=== PATIENT | male | born 1970 | race Hispanic/Latino ===

== ENCOUNTER 2025-07-04 21:27 | Inpatient (IN) | payer OTHER, SELFPAY ==
[2025-07-04 19:10] VITALS: BP 175/111
[2025-07-04 19:47] LABS: Urine Character Slightly Cloudy (Clear)
[2025-07-04 19:48] LABS: Hematocrit 38.9 % (39.0-52.0); Hemoglobin 13.4 g/dL (13.0-18.0); Mean Corp Hgb Conc. 34.4 g/dL (33.0-37.0); Mean Corpuscular Volume 96.3 fL (80.0-94.0); Nucleated Red Blood Cells % 0 % (-); Platelet Count 202 10^3/uL (130-400); Red Cell Dist. Width 12.1 % (11.5-14.5)
[2025-07-04 19:57] VITALS: BP 166/95
[2025-07-04 20:01] VITALS: BMI 24.9
[2025-07-04 20:04] LABS: Urine Urothelial Cell 0-2 /LPF (FEW)
[2025-07-04 20:10] LABS: ALT (SGPT) 58 U/L (0-50); AST (SGOT) 88 U/L (17-59); Albumin 5.6 g/dl (3.5-5.0); Alkaline Phosphatase 115 U/L (38-126); Blood Urea Nitrogen 13 mg/dl (9-20); Calcium 9.9 mg/dl (8.4-10.2); Carbon Dioxide 25 mmol/L (22-30); Chloride 93 mmol/L (98-107); Estimated Creatinine Clearance 107 ml/min; Glucose 160 mg/dl (70-99); Lipase 211 U/L (23-300); Potassium 4.4 mmol/L (3.5-5.1); Sodium 138 mmol/L (135-145); Total Protein 9.5 g/dl (6.3-8.2); eGFR > 60.00
--- NOTE | 2025-07-04 20:13 | ED.GENMED ---
History of Present Illness
<Winnie Andrew PA-C - Last Filed: 07/04/25 23:54>
General
Chief Complaint: Vomiting Blood
Source: patient
Exam Limitations: none
Time Seen by Provider: 07/04/25 19:49
History of Present Illness
History of Present Illness:
54yoM with a history of daily alcohol use presenting with his friend for evaluation of vomiting. History is obtained with the assistance of a [employer] video lab aid. Symptoms began this afternoon. He reports 4 episodes of bloody emesis.
Emesis is described as coffee grounds with 2 episodes of bright red blood. He also reports subjective fevers and feeling cold although did not check his temperature. He has some mild abdominal discomfort which he attributes to vomiting. No chest
pain, shortness of breath, dizziness, syncope. He drinks 2-3 alcoholic beverages daily. Last drink was about 24 hours ago. He denies any history of alcohol withdrawal and has never been diagnosed with liver disease in the past. He takes Advil
OTC but denies taking this daily. He has not seen a doctor in many years.
Phy Exam
<Winnie Andrew PA-C - Last Filed: 07/04/25 23:54>
Physical Exam
Physical Exam:
Patient tremulous
General Physical Exam
General Presentation: mild distress
General Skin: warm and dry
General Habitus: normal
General Mental: alert
Cardiovascular Exam
Cardiovascular Exam: tachycardia
Pulmonary Exam
Pulmonary Exam: lungs clear, no respiratory distress, no rales, no crackles, no rhonchi and no wheezing
Gastrointestinal Exam
Gastrointestinal Exam: non tender, soft and non distended
Neurological Exam
Neurological Exam: alert and other
Jolynn Coma Scale
Eye Opening: Spontaneous
Verbal Response: Oriented
Motor Response: Obeys Commands
GCS Total Score: 15
Skin Exam
Skin Exam: warm/dry
Psychiatric Exam
Psychiatric Exam: anxious
Course
<Winnie Andrew PA-C - Last Filed: 07/04/25 23:54>
Orders/Labs/Results
Orders:
Orders
07/04/25 Breakfast
NPO
Allow oral meds: Yes
Allow clear liquids: Sips of Clears
NPO with Ice Chips: Yes
07/04/25 19:29
Complete Blood Count/With Diff Urgent
Comprehensive Metabolic Panel Urgent
Lipase Urgent
Urinalysis Reflex To Culture Urgent
Date Specimen was Collected: 07/04/25
Time Specimen was Collected: 19:17
Urine Microscopic Reflex Cult Urgent
Urine Culture Urgent
BARBI Source: U
Specimen Description:
Date Specimen was Collected: 07/04/25
Time Specimen was Collected: 19:17
07/04/25 20:11
Electrocardiogram (*1) Urgent
Reason for Study: Abdominal Pain
EKG- Treatment ONCE
IV Insert/Care/Rem.- Treatment PRN
CefTRIAXone [Rocephin] 1,000 mg IV NOW STA
Lorazepam [Ativan] 2 mg IV NOW STA
Octreotide [Sandostatin] 50 mcg IV NOW STA
Pantoprazole [Protonix IV] 80 mg IV NOW STA
07/04/25 20:15
Type+Screen Urgent
Prothrombin Time Urgent
07/04/25 20:30
Octreotide Acetate [Sandostatin] 500 mcg 0.9% Sodium Chloride 250 ml [Nss] 249 ml IV Q10H
07/04/25 20:49
Admit/Transfer Patient As Directed
Co-Sign Provider:
Level of Care: Inpatient admission
Assign to:: IMU- Intermediate Care
Physician / Group: Gelacio
Diagnosis: GI Bleed, ETOH withdrawal
Reason for Hospitalization: PPI drip, serial H&H, alcohol withdrawal protocol
Expected length of stay greater than two midnights?: Yes
ELOS- Estimated Length of Stay in days: 3
I certify the patient meets the requirements for IP care: Yes
PRN Pain Medication Management As Directed
May give lesser potent ordered pain med per pt: Yes
preference::
Protocol:: Medication orders for pain may be administered in a
manner that supports deferring to patient preference
when the pt is:
- Requesting an ordered lesser potent pain medication.
Least to most potent pain medications are defined
as: acetaminophen < NSAID < tramadol < opioids
(morphine, oxycodone, hydromorphone).
- Requesting a lesser dose of the same medication IF
ORDERED.
- Requesting a less intrusive route of administration
if both routes are prescribed by the provider (PO <
IV).
07/04/25 20:50
Code Status As Directed
Resuscitation Status: Full Code
07/04/25 20:57
US Abdomen Complete/Upper Urgent
Comment:
Reason For Exam: abdominal pain, elevated bilirubin
07/04/25 22:25
0.9% Sodium Chloride 1000 ml [Nss] 1,000 ml IV 100 mls/hr
0.9% Sodium Chloride [Nss (Preservative Free)] See Protocol IV PRN PRN
Acetaminophen [Tylenol] 650 mg PO Q4HPRN PRN
FOLic ACID [Folvite] 1 mg 0.9% Sodium Chloride 50 ml [Nss] 50 ml IV DAILYPRN
Lorazepam [Ativan] 1 mg IV Q1HPRN PRN
Lorazepam [Ativan] 1 mg PO Q2HPRN PRN
Lorazepam [Ativan] 2 mg IV Q1HPRN PRN
Ondansetron Injectable [Zofran] 4 mg IV Q6HPRN PRN
Pantoprazole 80 mg/100 ml Nss [Protonix] 80 mg in 100 ml IV Q10H
Phenobarbital Sodium [Phenobarbital] 97.5 mg IV TID
07/04/25 22:25
GASTROINTESTINAL CONSULT Routine
Consulting Provider: Nati Johnson
Was physician already notified: Yes
Activity As Directed
Activity Level: Out of Bed-Early Mobility
With Assistance
I&O [Intake/ Output] As Directed
Frequency: q12h
MSAS SCORE As Directed
MSAS Score 0-4: Repeat MSAS every 2 hours until 0-4 for three consecutive assessments, then every 4 hours x 48
hours.
MSAS Score 5-7: For MILD withdrawl symptoms. Repeat MSAS and RASS every 2 hours
MSAS Score 8-11: For MODERATE withdrawal symptoms. Repeat MSAS and RASS every 1 hour. Consider ICU or IMU
level of care.
MSAS Score > 11: For SEVERE withdrawal symptoms. Repeat MSAS and RASS every 1 hour. Notify provider, consider
ICU level of care.
MSAS Additional Instructions: If no improvement or no decrease in score from severe to moderate within 12
hours, consult psychiatry
MSAS Notify Provider: Notify provider if patient requires more than 10 mg of Lorazepam in eight hour period.
Pneumatic Compression Sleeves As Directed
Type: Knee high
Vital Signs As Directed
Frequency: Per unit guidelines
DX Deep Vein Thrombosis Video Routine
07/05/25 00:30
H&H Q6H
07/05/25 06:00
Complete Blood Count/No Diff IN AM
Comprehensive Metabolic Panel IN AM
GGTP IN AM
Magnesium IN AM
Phosphorus IN AM
07/05/25 06:30
H&H Q6H
07/05/25 08:00
FOLic ACID [Folvite] 1 mg PO DAILY
Thiamine Injection 200 mg IV Q12
07/05/25 12:30
H&H Q6H
07/05/25 18:30
H&H Q6H
07/05/25 20:00
CefTRIAXone [Rocephin] 1,000 mg IV Q24H
07/06/25 22:00
Phenobarbital [Luminal] 64.8 mg PO TID
07/08/25 08:00
Thiamine HCl [Vitamin B1] 100 mg PO BID
07/08/25 22:00
Phenobarbital [Luminal] 32.4 mg PO TID
Abnormal Lab Results
07/04/25
19:29
WBC 11.0 H 10^3/uL
(4.8-10.8)
RBC 4.04 L 10^6/uL
(4.70-6.10)
Hct 38.9 L %
(39.0-52.0)
MCV 96.3 H fL
(80.0-94.0)
MCH 33.2 H pg
(27.0-31.0)
Absolute Neuts (auto) 10.0 H 10^3/uL
(1.4-6.5)
Absolute Lymphs (auto) 0.3 L 10^3/uL
(1.2-3.4)
Neutrophils % 91.0 H %
(42.2-75.2)
Lymphocytes % 3.1 L %
(20.5-51.1)
Chloride 93 L mmol/L
(98-107)
Glucose 160 H mg/dl
(70-99)
Total Bilirubin 2.0 H mg/dl
(0.2-1.3)
AST 88 H U/L
(17-59)
ALT 58 H U/L
(0-50)
Total Protein 9.5 H g/dl
(6.3-8.2)
Albumin 5.6 H g/dl
(3.5-5.0)
Urine Ketones 3+ A
(Negative)
Ur Occult Blood Reflex 3+ A
(Negative)
Urine Nitrite (Reflex) Positive A
(Negative)
Urine Urobilinogen 2+ A
(Neg - 1+)
Leukocyte Esterase Rfl 1+ A
(Negative)
Urine RBC 7-10 A /HPF
(0-2)
Urine Bacteria (Reflex) Moderate A
(Negative)
Urine Albumin (Reflex) 3+ A
(Neg - Trace)
07/04/25 19:51
07/04/25 19:29
Vital Signs
Initial and Last Documented VS:
Initial Vital Signs
Temp Pulse Resp BP Pulse Ox
98.5 F 127 24 175/111 98
07/04/25 19:10 07/04/25 19:10 07/04/25 19:10 07/04/25 19:10 07/04/25 19:10
Last Documented Vital Signs
Temp Pulse Resp BP Pulse Ox
98.6 F 96 17 148/98 99
07/04/25 22:36 07/04/25 23:12 07/04/25 23:12 07/04/25 23:12 07/04/25 23:15
Adriannalt;Isac Mckeon, DO - Last Filed: 07/04/25 20:29>
Orders/Labs/Results
Orders:
Orders
07/04/25 Breakfast
NPO
Allow oral meds: Yes
Allow clear liquids: Sips of Clears
NPO with Ice Chips: Yes
07/04/25 19:29
Complete Blood Count/With Diff Urgent
Comprehensive Metabolic Panel Urgent
Lipase Urgent
Urinalysis Reflex To Culture Urgent
Date Specimen was Collected: 07/04/25
Time Specimen was Collected: 19:17
Urine Microscopic Reflex Cult Urgent
Urine Culture Urgent
BARBI Source: U
Specimen Description:
Date Specimen was Collected: 07/04/25
Time Specimen was Collected: 19:17
07/04/25 20:11
Electrocardiogram (*1) Urgent
Reason for Study: Abdominal Pain
EKG- Treatment ONCE
IV Insert/Care/Rem.- Treatment PRN
CefTRIAXone [Rocephin] 1,000 mg IV NOW STA
Lorazepam [Ativan] 2 mg IV NOW STA
Octreotide [Sandostatin] 50 mcg IV NOW STA
Pantoprazole [Protonix IV] 80 mg IV NOW STA
07/04/25 20:15
Type+Screen Urgent
Prothrombin Time Urgent
07/04/25 20:30
Octreotide Acetate [Sandostatin] 500 mcg 0.9% Sodium Chloride 250 ml [Nss] 249 ml IV Q10H
07/04/25 20:49
Admit/Transfer Patient As Directed
Co-Sign Provider:
Level of Care: Inpatient admission
Assign to:: IMU- Intermediate Care
Physician / Group: Gelacio
Diagnosis: GI Bleed, ETOH withdrawal
Reason for Hospitalization: PPI drip, serial H&H, alcohol withdrawal protocol
Expected length of stay greater than two midnights?: Yes
ELOS- Estimated Length of Stay in days: 3
I certify the patient meets the requirements for IP care: Yes
PRN Pain Medication Management As Directed
May give lesser potent ordered pain med per pt: Yes
preference::
Protocol:: Medication orders for pain may be administered in a
manner that supports deferring to patient preference
when the pt is:
- Requesting an ordered lesser potent pain medication.
Least to most potent pain medications are defined
as: acetaminophen < NSAID < tramadol < opioids
(morphine, oxycodone, hydromorphone).
- Requesting a lesser dose of the same medication IF
ORDERED.
- Requesting a less intrusive route of administration
if both routes are prescribed by the provider (PO <
IV).
07/04/25 20:50
Code Status As Directed
Resuscitation Status: Full Code
07/04/25 20:57
US Abdomen Complete/Upper Urgent
Comment:
Reason For Exam: abdominal pain, elevated bilirubin
07/04/25 22:25
0.9% Sodium Chloride 1000 ml [Nss] 1,000 ml IV 100 mls/hr
0.9% Sodium Chloride [Nss (Preservative Free)] See Protocol IV PRN PRN
Acetaminophen [Tylenol] 650 mg PO Q4HPRN PRN
FOLic ACID [Folvite] 1 mg 0.9% Sodium Chloride 50 ml [Nss] 50 ml IV DAILYPRN
Lorazepam [Ativan] 1 mg IV Q1HPRN PRN
Lorazepam [Ativan] 1 mg PO Q2HPRN PRN
Lorazepam [Ativan] 2 mg IV Q1HPRN PRN
Ondansetron Injectable [Zofran] 4 mg IV Q6HPRN PRN
Pantoprazole 80 mg/100 ml Nss [Protonix] 80 mg in 100 ml IV Q10H
Phenobarbital Sodium [Phenobarbital] 97.5 mg IV TID
07/04/25 22:25
GASTROINTESTINAL CONSULT Routine
Consulting Provider: Nati Johnson
Was physician already notified: Yes
Activity As Directed
Activity Level: Out of Bed-Early Mobility
With Assistance
I&O [Intake/ Output] As Directed
Frequency: q12h
MSAS SCORE As Directed
MSAS Score 0-4: Repeat MSAS every 2 hours until 0-4 for three consecutive assessments, then every 4 hours x 48
hours.
MSAS Score 5-7: For MILD withdrawl symptoms. Repeat MSAS and RASS every 2 hours
MSAS Score 8-11: For MODERATE withdrawal symptoms. Repeat MSAS and RASS every 1 hour. Consider ICU or IMU
level of care.
MSAS Score > 11: For SEVERE withdrawal symptoms. Repeat MSAS and RASS every 1 hour. Notify provider, consider
ICU level of care.
MSAS Additional Instructions: If no improvement or no decrease in score from severe to moderate within 12
hours, consult psychiatry
MSAS Notify Provider: Notify provider if patient requires more than 10 mg of Lorazepam in eight hour period.
Pneumatic Compression Sleeves As Directed
Type: Knee high
Vital Signs As Directed
Frequency: Per unit guidelines
DX Deep Vein Thrombosis Video Routine
07/05/25 00:30
H&H Q6H
07/05/25 06:00
Complete Blood Count/No Diff IN AM
Comprehensive Metabolic Panel IN AM
GGTP IN AM
Magnesium IN AM
Phosphorus IN AM
07/05/25 06:30
H&H Q6H
07/05/25 08:00
FOLic ACID [Folvite] 1 mg PO DAILY
Thiamine Injection 200 mg IV Q12
07/05/25 12:30
H&H Q6H
07/05/25 18:30
H&H Q6H
07/05/25 20:00
CefTRIAXone [Rocephin] 1,000 mg IV Q24H
07/06/25 22:00
Phenobarbital [Luminal] 64.8 mg PO TID
07/08/25 08:00
Thiamine HCl [Vitamin B1] 100 mg PO BID
07/08/25 22:00
Phenobarbital [Luminal] 32.4 mg PO TID
Abnormal Lab Results
07/04/25
19:29
WBC 11.0 H 10^3/uL
(4.8-10.8)
RBC 4.04 L 10^6/uL
(4.70-6.10)
Hct 38.9 L %
(39.0-52.0)
MCV 96.3 H fL
(80.0-94.0)
MCH 33.2 H pg
(27.0-31.0)
Absolute Neuts (auto) 10.0 H 10^3/uL
(1.4-6.5)
Absolute Lymphs (auto) 0.3 L 10^3/uL
(1.2-3.4)
Neutrophils % 91.0 H %
(42.2-75.2)
Lymphocytes % 3.1 L %
(20.5-51.1)
Chloride 93 L mmol/L
(98-107)
Glucose 160 H mg/dl
(70-99)
Total Bilirubin 2.0 H mg/dl
(0.2-1.3)
AST 88 H U/L
(17-59)
ALT 58 H U/L
(0-50)
Total Protein 9.5 H g/dl
(6.3-8.2)
Albumin 5.6 H g/dl
(3.5-5.0)
Urine Ketones 3+ A
(Negative)
Ur Occult Blood Reflex 3+ A
(Negative)
Urine Nitrite (Reflex) Positive A
(Negative)
Urine Urobilinogen 2+ A
(Neg - 1+)
Leukocyte Esterase Rfl 1+ A
(Negative)
Urine RBC 7-10 A /HPF
(0-2)
Urine Bacteria (Reflex) Moderate A
(Negative)
Urine Albumin (Reflex) 3+ A
(Neg - Trace)
07/04/25 19:51
07/04/25 19:29
Vital Signs
Initial and Last Documented VS:
Initial Vital Signs
Temp Pulse Resp BP Pulse Ox
98.5 F 127 24 175/111 98
07/04/25 19:10 07/04/25 19:10 07/04/25 19:10 07/04/25 19:10 07/04/25 19:10
Last Documented Vital Signs
Temp Pulse Resp BP Pulse Ox
98.6 F 96 17 148/98 99
07/04/25 22:36 07/04/25 23:12 07/04/25 23:12 07/04/25 23:12 07/04/25 23:15
<Winnie Andrew PA-C - Last Filed: 07/04/25 23:54>
MDM/Problems Addressed
Differential Diagnosis Includes:
54yoM here after several episodes of hematemesis today. Hx of daily alcohol use. No prior dx of cirrhosis. Patient tachycardic and tremulous on exam. Last alcoholic drink was 24 hours ago. BP stable. Differential diagnosis includes: Esophageal
variceal bleed, peptic ulcer disease, gastritis, Linda-Dickinson tear
Initial ED plan: Will obtain IV access, check labs, and initiated on an octreotide gtt. 2mg IV Ativan given for concern for acute alcohol withdrawal. 80mg IV Protonix and IV Rocephin dose also ordered.
<Winnie Andrew PA-C - Last Filed: 07/04/25 23:54>
*Pulse Oximetry
SaO2: 96
Oxygen Mode of Delivery: Room air
Patient hypoxic: no
*Critical Care Note
Total Time (30-74mins, 75-104mins- exclusive of procedures): Not Applicable
<Winnie Andrew PA-C - Last Filed: 07/04/25 23:54>
Update Note
Update Note:
Hemoglobin stable at 13.4. Mild transaminitis noted on labs. INR normal. GI notified and patient admitted for further management.
ED Attending Note
<Winnie Andrew PA-C - Last Filed: 07/04/25 23:54>
-
Portions of this chart may have been created with voice recognition software.� Occasional wrong word or��sound alike� substitutions may have occurred due to the inherent limitations of voice recognition software.
<Isac Mckeon DO - Last Filed: 07/04/25 20:29>
ED Attending Note
Patient seen and examined by attending physician: Yes
I performed the substantive portion of visit, reviewed & personally made and approve the management plan that is documented in note by myself or GRACIELA.: Yes
ED Attending Note:
I agree with Padmaja's note
54-year-old male presents complaining of vomiting blood. He describes both coffee ground emesis as well as bright red blood. Patient does admit to daily alcohol use but also uses NSAIDs. No abdominal pain at this time.
General: Awake, Alert, Oriented X3. Tremulous, no real distress
Vitals: Tachycardic
Head: Atraumatic
Eyes: Pupils equal, EOMI, slightly icteric
Throat: Airway intact, no exudates
Neck: Trachea midline
Lungs: Clear and equal b/l
Heart: Regular rate, no murmurs
Abd: Soft, Nontender, No pulsatile mass
Neuro: Nonfocal
Skin: Warm, dry, no rash
Extremities: pulses equal b/l, no edema
Patient arrives with description of coffee-ground emesis and hematemesis. Patient also appears to have signs of alcohol withdrawal. Will treat with IV fluids, proton pump inhibitor, octreotide in case this is variceal bleeding. Obviously will
require hospitalization.
Discharge Plan
Departure
Patient Disposition: Admit
Date of Disposition: 07/04/25
Time of Disposition: 20:16
Presentation/result/management discussed w/ accepting MD/DO: Hospitalist
Discharge Problem:
Hematemesis
Interventions
Interventions:
*Risk Screen - Suicide Last Done: 07/04/25 19:10
*General Assessment Last Done: 07/04/25 19:10
*Neglect/Abuse Screening Last Done: 07/04/25 19:10
*ED- Fall Risk Assessment Last Done: 07/04/25 19:10
*ED COVID-19 Vaccine History Last Done: 07/04/25 19:10
*ED Influenza Vaccine History Last Done: 07/04/25 19:10
*Nursing Disposition Last Done: 07/04/25 22:35
SX-Pvzvkx-Gclmrmzpla Assessment Last Done: 07/04/25 19:58
ED- Cardiac Assessment Last Done: 07/04/25 19:59
ED- Pulmonary Assessment Last Done: 07/04/25 19:59
Discharge Date and Time
Discharge Date/Time: 07/04/25 22:35
[2025-07-04] MEDS: SANDOSTATIN 50 MCG IV (20:28)
[2025-07-04] MEDS: ATIVAN 2 MG IV (20:28)
[2025-07-04] MEDS: ROCEPHIN 1000 MG IV (20:28)
[2025-07-04] MEDS: PROTONIX IV 80 MG IV (20:29)
[2025-07-04 20:34] LABS: INR 1.05; PT 14.2 Sec (11.4-14.6)
--- NOTE | 2025-07-04 20:52 | W.PN.UPDATE ---
Update Note
Progress Note Update
Patient seen in conjunction with nurse practitioner. I agree with the findings and physical. I concur with Humberto cancino.
Briefly, this is a 54-year-old with no known signal past medical history but endorses frequent alcohol use presenting to the emergency department with 2 episodes of coffee-ground emesis and 2 episodes of hematemesis.
Patient reports acute onset of nausea and vomiting that is now resolved. He denies having any fevers or chills. He denies having any diarrhea. No known sick contacts. Patient drinks about 3 shots 4 times a week as endorsed by him, however his
friend reports drinking 1-1/2 bottles of tequila daily and he has been doing that for several months. He also smokes about 2 packs of cigarettes daily. No history of any drug use. He denies a known history of alcoholic liver disease. He has no
prior history of ascites, peripheral edema, denies prior history of GI bleed and has never had a colonoscopy or upper endoscopy. Denies any prior history of peptic ulcer disease.
In the emergency department he was afebrile, blood pressure was 160/90 with a pulse of 117 and he was satting 96% on room air.
White count was 11.0 hemoglobin 13.4 with MCV of 96 and a platelet count of 200. Electrolytes BUN/creatinine were normal. BUN was 13. Glucose was normal. He had a lipase was negative and he has a slightly elevated total bilirubin of 2.0 AST 88
and ALT 58.
Assessment and plan
GI bleed -[id number] with no known past medical history, history of alcohol use, denies NSAIDs and no known history of peptic ulcer disease or cirrhosis who presents to the emergency department with vomiting and hematemesis likely secondary to
acute gastritis from alcohol or viral etiology versus peptic ulcer and less likely variceal bleeding. Picture complicated by symptoms of early alcohol withdrawal.
� Admit to IMU
� N.p.o. for now
� PPI drip
� Starting octreotide/ceftriaxone for possible variceal bleed,
- Will obtain right upper ultrasound, if no evidence of cirrhosis we will discontinue octreotide and ceftriaxone for GI bleed prophylaxis
� Trend H&H every 6 to 8
� Type and screen
�IV fluids, antiemetics and pain control
� GI consultation
Alcohol withdrawal�history of normal daily alcohol use, MCV is 96.3 with mild transaminitis. Currenly CIWA < 6 after 1 dose of lorazepam
- etoh level
� Right upper quadrant ultrasound as above
� Will start on emphasized withdrawal protocol with the low-dose phenobarbital
DVT prophylaxis�SCDs
CODE STATUS�full code
--- NOTE | 2025-07-04 20:56 | HPS.HSE ---
Family Physician
-
Family Physician: * NONE
Chief Complaint
-
Coffee-Ground Emesis
History of Present Illness
Patient is a 54 y/o male past medical history of alcohol use disorder who presents with coffee-ground emesis. Patient reports vomiting began this morning and described as coffee colored. He reports a small amount of bright red blood, but notes its
mostly brown colored. He reports associated epigastric abdominal discomfort. He reports occasional NSAID use but not on a regular basis. He denies prior history of similar symptoms.
Initially upon arrival patient was noted to be quick tremulous raising concern for alcohol withdrawal. He was given dose of lorazepam in the emergency department with improvement in his tremors.
Medical History
Past Medical History
Past Medical History: Reports Other
Additional Past Medical History:
Alcohol Use Disorder
Past Surgical History: Reports None
Social History
Tobacco: Smoker (4-5 cigarettes per day)
Alcohol: Daily (1.5 bottles of tequila daily)
Family History
Family History: Not pertinent
Allergies / Home Medications
Allergies reflects when Allergies were last updated in [facility].
Home Medications with original date entered in [facility]
Allergy/Medication List:
Allergies
Allergy/AdvReac Type Severity Reaction Status Date / Time
No Known Allergies Allergy Unverified 07/04/25 19:10
Home Medications
ibuprofen 200 mg tablet (Advil) 200 mg PO Q6HPRN PRN MILD PAIN 07/04/25
Review of Systems
-
History Source: Patient
A 12 point ROS was completed and negative except as noted: Yes
Constitutional: Denies Fever or Chills
Respiratory: Denies Cough or Trouble Breathing
Cardiac: Denies Chest Pain or Palpitations
Abdomen/GI: Reports See HPI
Physical Exam
Vital Signs
Vital Signs
Temp Pulse Resp BP Pulse Ox
98.5 F 117 29 166/95 96
07/04/25 19:10 07/04/25 20:00 07/04/25 20:00 07/04/25 19:57 07/04/25 20:16
Physical Exam
General: Well Developed, Well Nourished and No Apparent Distress
HEENT: NormoCephalic, Anicteric, Moist mucous membranes and Atraumatic
Respiratory: Clear and Non Labored Respirations; No Wheezes, Rales or Rhonchi
Cardiac: S1/S2, Regular Rhythm and Tachycardia
GI: Soft, Non Distended and Tender (Mild in epigastric region)
Musculoskeletal: No Clubbing, No Cyanosis and No Edema
Skin: Warm and Dry; No Rash
Neuro: Awake, Alert, Oriented and Nonfocal/grossly intact
Psych: Calm
Laboratory Results
-
07/04/25 19:51
07/04/25 19:29
Laboratory Results
PT 14.2 Sec (11.4-14.6) 07/04/25 20:15
INR 1.05 07/04/25 20:15
Total Bilirubin 2.0 mg/dl (0.2-1.3) H 07/04/25 19:29
AST 88 U/L (17-59) H 07/04/25 19:29
ALT 58 U/L (0-50) H 07/04/25 19:29
Alkaline Phosphatase 115 U/L (38-126) 07/04/25 19:29
Lipase 211 U/L (23-300) 07/04/25 19:29
Data Reviewed
-
Lab Data: Labs Reviewed by me
Impression/Plan
-
GI Bleed, likely upper in nature, possible variceal bleeding given significant alcohol use
-Admit to IMU
-Consult GI
-Continue Protonix drip
-Continue octreotide drip, and ceftriaxone - Consider stopping if Abd US is negative for cirrhosis
-Continue NPO/IVF
-Monitor serial Hgb
Elevated LFTs
-Check Abdominal US
Alcohol Withdrawal / Alcohol Use Disorder
-Continue thiamine and folic acid
-Continue phenobarbital
-Continue lorazepam PRN
DVT proph: SCDs
Code Status: Full Code
[2025-07-04] MEDS: SANDOSTATIN 250 MCG IV (20:58)
[2025-07-04 21:01] VITALS: BP 150/95
[2025-07-04 22:00] VITALS: BP 154/98
[2025-07-04 22:36] VITALS: BMI 24.0
[2025-07-04] MEDS: PROTONIX 100 IV (22:59)
[2025-07-04] MEDS: NSS 1000 IV (22:59)
[2025-07-04] MEDS: PHENOBARBITAL 97.5 MG IV (22:59)
[2025-07-04 23:12] VITALS: BP 148/98
--- NOTE | 2025-07-04 23:51 | PTCARENOTE ---
pt admitted from the ED, pt is AAOx3- ukrainian speaking but able to communicate via pashto, language line in room. MSAS 2-3, some mild tremors noted, pt stated they were better than earlier. ST on the monitor, rates 80s-110s. no complaints of pain
or nausea at this time. VSS. 4LNC 99%. IV fluids infusing, PPI gtt infusing. pt oriented to room, bed alarm on just in case. call oleary within reach, care ongoing.
[2025-07-05] VITALS (12 sets, daily range): BP systolic 118–149; BP diastolic 74–103
[2025-07-05] MEDS: NSS (PRESERVATIVE FREE) 10 ML IV (00:40)
[2025-07-05] MEDS: ATIVAN 1 MG IV (00:40)
[2025-07-05 00:44] LABS: Hematocrit 37.5 % (39.0-52.0); Hemoglobin 12.9 g/dL (13.0-18.0)
[2025-07-05 05:50] LABS: Hematocrit 33.8 % (39.0-52.0); Hemoglobin 11.2 g/dL (13.0-18.0); Mean Corp Hgb Conc. 33.1 g/dL (33.0-37.0); Mean Corpuscular Volume 99.1 fL (80.0-94.0); Platelet Count 151 10^3/uL (130-400); Red Cell Dist. Width 12.0 % (11.5-14.5)
[2025-07-05 05:59] LABS: ALT (SGPT) 47 U/L (0-50); AST (SGOT) 62 U/L (17-59); Albumin 4.3 g/dl (3.5-5.0); Alkaline Phosphatase 80 U/L (38-126); Blood Urea Nitrogen 12 mg/dl (9-20); Calcium 8.4 mg/dl (8.4-10.2); Carbon Dioxide 29 mmol/L (22-30); Chloride 102 mmol/L (98-107); Estimated Creatinine Clearance > 125 ml/min; GGTP 570 U/L (15-73); Glucose 139 mg/dl (70-99); Magnesium 1.8 mg/dl (1.6-2.3); Potassium 3.9 mmol/L (3.5-5.1); Sodium 137 mmol/L (135-145); Total Protein 7.5 g/dl (6.3-8.2); eGFR > 60.00
--- NOTE | 2025-07-05 08:06 | W.PN.HOSP.TC ---
Today's Communication/Plan
-
see PN
Assessment / Plan
Assessment / Plan
54yo M, primarrely [place] peaking came with 2 episodes of hematemesis. On admission confirmed to drink 1.5L of Tequila dily. Also found in alcohol withdrawal. US RUQ showed heaptic steatosis but no overt signs opf portal hypertension or cirrhosis
A/P:
#HAcute blood loss anemai 2/2 hematemesis due to PUD
possibly exacerbated by NSAIDs and alcohol use
follow serail H&H, transfuse as needed
Octreotide stopped with no signs of portal HTN
cont PPI drip
No abd ascites on US
GI consult
#Alcohol use disorder with alcohol withdrawal
Thiamine/FOlate
MSAS protocol
Phenobarb taper
watch for DT
#Elevated bilirubin
#Transaminitis
no signs of cholecystitis, cholelithiasis or choledocholithiasis on US
most likely 2/2 alcohol abuse
follow LFT
#Asymptomatic bacteriuria
no urinary symptoms, no indication for Abx
DVT ppx SCD
Full code
I have spent at least 58min reviewing chart, test results, communication with consultants and providing direct patient care
Anticipated Discharge: > 48 hours
Subjective/Interval History
-
Date of Service: July 05, 2025
Objective Data
-
Labs:
Laboratory Results
07/04/25 07/04/25 07/05/25
19:29 20:15 00:37
WBC
Hgb 12.9 L
Hct 37.5 L
Plt Count
PT 14.2
INR 1.05
Sodium 138
Potassium 4.4
Chloride 93 L
Carbon Dioxide 25
BUN 13
Creatinine 0.8
Glucose 160 H
Calcium 9.9
Total Bilirubin 2.0 H
AST 88 H
ALT 58 H
Alkaline Phosphatase 115
07/05/25 07/05/25 07/05/25
05:23 12:30 18:30
WBC 6.5
Hgb 11.2 L Pending Pending
Hct 33.8 L Pending Pending
Plt Count 151 D
PT
INR
Sodium 137
Potassium 3.9
Chloride 102
Carbon Dioxide 29
BUN 12
Creatinine 0.6 L
Glucose 139 H
Calcium 8.4 D
Total Bilirubin 2.0 H
AST 62 H
ALT 47
Alkaline Phosphatase 80
Vital Signs:
Vital Signs
Temp Pulse Resp BP Pulse Ox
98.1 F 72 16 149/103 100
07/05/25 07:30 07/05/25 06:00 07/05/25 06:00 07/05/25 06:00 07/05/25 06:00
Review of Systems
-
History Source: Patient
All other systems: Reviewed and negative
Physical Exam
-
General: No Apparent Distress
Respiratory: Clear to Auscultation
Cardiac: Regular Rhythm
GI: Soft, Nontender and Nondistended
Musculoskeletal: No Clubbing, No Cyanosis and No Edema
Neuro: Awake, Alert, Oriented, AO x 3 and Tremors
Psych: Calm
--- NOTE | 2025-07-05 08:13 | PTCARENOTE ---
Pt AAOx3 smiling some tremors noted . Pt can hve sipsand chips.
[2025-07-05] MEDS: THIAMINE INJECTION 200 MG IV ×2 (08:27→21:27)
[2025-07-05] MEDS: PHENOBARBITAL 97.5 MG IV ×3 (08:28→21:27)
[2025-07-05] MEDS: PROTONIX 100 IV ×2 (08:34→16:13)
[2025-07-05] MEDS: NSS 1000 IV ×2 (08:35→17:37)
--- NOTE | 2025-07-05 08:42 | CON.GI ---
Consultation
-
Date/Time Consultation Requested: 07/04/25 8:16am
Date/Time Consultation Performed: 07/05/25 8:42am
Requesting Provider: Winnie Andrew
Performing Provider: Nathan Barros
Reason for Consultation: CGE
Medical History
Chief Complaint / HPI
Chief Complaint: CGE
History of Present Illness:
54yo male presents with CGE. He had 3 shots tequilla yesterday began with several episodes of nonbloody emesis. The third episode was dark coffee ground colored and he was concerned and came to ER. Had some abd pain yesterday that has resolved.
No prior EGD. Takes occasional Advil, last dose last week. Denies hx GI bleeding
Past Medical History
Past Medical History: Other (Alcohol use disorder)
Past Surgical History: None
Social History
Tobacco: Smoker
Alcohol: Daily
Family History
Family History: Reviewed & Not Pertinent
Allergies / Home Medications
Allergy/AdvReac Type Severity Reaction Status Date / Time
No Known Allergies Allergy Unverified 07/04/25 19:10
�Medication �Instructions �Recorded
ibuprofen 200 mg tablet (Advil) 200 mg PO Q6HPRN PRN MILD PAIN 07/04/25
Review of Systems
-
All other systems: A 12 pt ROS was Negative except as stated above in HPI
Vital Signs
Temp Pulse Resp BP Pulse Ox
98.1 F 72 16 149/103 100
07/05/25 07:30 07/05/25 06:00 07/05/25 06:00 07/05/25 06:00 07/05/25 06:00
Physical Exam
Exam
General: Well Developed, Well Nourished and No Apparent Distress
HEENT: Normocephalic and Atraumatic
Respiratory: Non Labored Respirations
GI: Soft, Non Tender and Non Distended
Musculoskeletal: No Edema
Skin: Warm and Dry
Results
WBC 6.5 10^3/uL (4.8-10.8) 07/05/25 05:23
Hgb 11.2 g/dL (13.0-18.0) L 07/05/25 05:23
Hct 33.8 % (39.0-52.0) L 07/05/25 05:23
MCV 99.1 fL (80.0-94.0) H 07/05/25 05:23
Plt Count 151 10^3/uL (130-400) D 07/05/25 05:23
Absolute Neuts (auto) Cancelled 07/04/25 19:51
PT 14.2 Sec (11.4-14.6) 07/04/25 20:15
INR 1.05 07/04/25 20:15
Sodium 137 mmol/L (135-145) 07/05/25 05:23
Potassium 3.9 mmol/L (3.5-5.1) 07/05/25 05:23
Chloride 102 mmol/L (98-107) 07/05/25 05:23
Carbon Dioxide 29 mmol/L (22-30) 07/05/25 05:23
BUN 12 mg/dl (9-20) 07/05/25 05:23
Creatinine 0.6 mg/dL (0.7-1.3) L 07/05/25 05:23
Calcium 8.4 mg/dl (8.4-10.2) D 07/05/25 05:23
Total Bilirubin 2.0 mg/dl (0.2-1.3) H 07/05/25 05:23
AST 62 U/L (17-59) H 07/05/25 05:23
ALT 47 U/L (0-50) 07/05/25 05:23
Alkaline Phosphatase 80 U/L (38-126) 07/05/25 05:23
Lipase 211 U/L (23-300) 07/04/25 19:29
Diagnostic Image Results:
Prior GI Procedures:
EGD:
Colonoscopy:
Assessment / Plan
-
Summary: 54 yo male presents with emesis that became coffee ground colored. Hx EtOH, had 3 shots tequilla prior to emesis. Hgb 13.4-- 12.9-- 11.2. US- hepatomegaly, steatosis. AST 88, ALT 58. Hemodynamically stable. No further emesis since ER.
Impression:
Coffee ground emesis likely Linda Dickinson tear
EtOH use disorder
Recommendation:
Hgb 11.2, down from 13.4
Continue protonix gtt
No further emesis
Plan EGD tomorrow to evaluate for MW tear, r/o PUD
Advised cutting back on EtOH
-
-
Thank you for consultation and allowing me to participate in the patient's care. Please call the emergency response technician GI physician during the after hours with any questions or concerns.
[2025-07-05] MEDS: FOLVITE 1 MG PO (11:18)
[2025-07-05 13:09] LABS: Hematocrit 36.7 % (39.0-52.0); Hemoglobin 12.7 g/dL (13.0-18.0)
[2025-07-05 19:58] LABS: Hematocrit 36.1 % (39.0-52.0); Hemoglobin 12.3 g/dL (13.0-18.0)
--- NOTE | 2025-07-05 23:00 | PTCARENOTE ---
Pt AAOx3 Pt speaking Swedish well and answering question appropriately. Pt continues on MSAS scoring 1, per anthony call MSAS now at Q4. Pt has no complaints a this time.
[2025-07-06] VITALS (9 sets, daily range): BP systolic 14–137; BP diastolic 66–96
[2025-07-06] MEDS: NSS 1000 IV (02:44)
[2025-07-06] MEDS: PROTONIX 100 IV (02:44)
[2025-07-06 05:56] LABS: ALT (SGPT) 48 U/L (0-50); AST (SGOT) 74 U/L (17-59); Albumin 4.1 g/dl (3.5-5.0); Alkaline Phosphatase 73 U/L (38-126); Blood Urea Nitrogen 11 mg/dl (9-20); Calcium 8.7 mg/dl (8.4-10.2); Carbon Dioxide 27 mmol/L (22-30); Chloride 100 mmol/L (98-107); Estimated Creatinine Clearance > 125 ml/min; Glucose 86 mg/dl (70-99); Potassium 3.6 mmol/L (3.5-5.1); Sodium 132 mmol/L (135-145); Total Protein 7.1 g/dl (6.3-8.2); eGFR > 60.00
[2025-07-06 06:05] LABS: Hematocrit 35.5 % (39.0-52.0); Hemoglobin 12.1 g/dL (13.0-18.0); Mean Corp Hgb Conc. 34.1 g/dL (33.0-37.0); Mean Corpuscular Volume 97.8 fL (80.0-94.0); Nucleated Red Blood Cells % 0 % (-); Platelet Count 131 10^3/uL (130-400); Red Cell Dist. Width 11.5 % (11.5-14.5)
--- NOTE | 2025-07-06 08:32 | W.PN.UPDATE ---
Update Note
Progress Note Update
EGD done
Non bleeding erosion in gastric cardia
Otherwise normal
REC:
Resume diet
Protonix 40mg daily x 1 month
OK to d/c
Will sign off
[2025-07-06] MEDS: PHENOBARBITAL 97.5 MG IV (09:15)
[2025-07-06] MEDS: FOLVITE 1 MG PO (09:16)
[2025-07-06] MEDS: THIAMINE INJECTION 200 MG IV ×2 (09:16→20:22)
--- NOTE | 2025-07-06 09:45 | PTCARENOTE ---
Patient received from shift production associate. Patient resting comfortably in bed. AAO, VSS. No events noted overnight. No complaints of pain. MSAS this AM was 1. Currently on NSS and Protonix gtt. Scheduled for EGD this AM, no other testing at this
time. Call oleary in reach.
--- NOTE | 2025-07-06 10:37 | W.PN.HOSP.TC ---
Today's Communication/Plan
-
Improving - no tremors or tongue fasciculations, low risk for worsening withdrawal. Will shorten phenobarb taper.
Assessment / Plan
Assessment / Plan
54yo M, primarrely citizen of [place] peaking came with 2 episodes of hematemesis. On admission confirmed to drink 1.5L of Tequila dily. Also found in alcohol withdrawal. US RUQ showed heaptic steatosis but no overt signs opf portal hypertension or cirrhosis
A/P:
#HAcute blood loss anemai 2/2 hematemesis due to PUD
possibly exacerbated by NSAIDs and alcohol use
follow serail H&H, transfuse as needed
Octreotide stopped with no signs of portal HTN
cont PPI drip
No abd ascites on US
GI consult: s/p EGD on 07/06/25 - Non bleeding erosion in gastric cardia, Otherwise normal - cont BID PPI
#Alcohol use disorder with alcohol withdrawal
Thiamine/FOlate
MSAS protocol
Phenobarb taper
watch for DT
B12 IM x3 doses as alcoholics usually depleted in this vitamin
#Elevated bilirubin
#Transaminitis
no signs of cholecystitis, cholelithiasis or choledocholithiasis on US
most likely 2/2 alcohol abuse
follow LFT
#Asymptomatic bacteriuria
no urinary symptoms, no indication for Abx
DVT ppx SCD
Full code
I have spent at least 51min reviewing chart, test results, communication with consultants and providing direct patient care
Anticipated Discharge: 24 - 48 hours
Subjective/Interval History
-
Date of Service: July 06, 2025
Objective Data
-
Labs:
Laboratory Results
07/06/25
05:16
WBC 6.8
Hgb 12.1 L
Hct 35.5 L
Plt Count 131
Sodium 132 L
Potassium 3.6
Chloride 100
Carbon Dioxide 27
BUN 11
Creatinine 0.6 L
Glucose 86
Calcium 8.7
Total Bilirubin 2.0 H
AST 74 H
ALT 48
Alkaline Phosphatase 73
Vital Signs:
Vital Signs
Temp Pulse Resp BP Pulse Ox
98.6 F 63 14 122/83 98
07/06/25 08:45 07/06/25 08:45 07/06/25 08:45 07/06/25 08:45 07/06/25 08:45
I&O
07/05/25 07/06/25 07/07/25
06:59 06:59 06:59
Intake Total 1412 / 1412
Output Total 1250 / 1250
Balance 162 / 162
Review of Systems
-
History Source: Patient
All other systems: Reviewed and negative
Physical Exam
-
General: No Apparent Distress
Neuro: Awake, Alert, Oriented and AO x 3; Negative Tremors
Psych: Calm
[2025-07-06] MEDS: PROTONIX 40 MG PO ×2 (11:50→20:22)
[2025-07-06] MEDS: CYANOCOBALAMIN 1000 MCG IM (11:50)
--- NOTE | 2025-07-06 15:18 | CM ---
Addendum entered by Kaylene Pedro 07/06/25 15:20:
Offered D&A resources since saw w/d from ETOH, but refused.
Original Note:
I.A: Completed By ADOLFO Maurice
Patient lives in an apartment alone, Independent of ADL's and IADL's, No DME or VN/PT, or STR. Patient does not have a PCP, and No insurance as well. Patient has transport home when ready. PLAN: Home No Needs.
[2025-07-06] MEDS: LUMINAL 64.8 MG PO ×2 (16:04→22:04)
--- NOTE | 2025-07-06 17:46 | PTCARENOTE ---
Report called to D[facility] QUIG[facility] 4E
--- NOTE | 2025-07-06 18:15 | PTCARENOTE ---
Received report from Phu in IMU. Pt arrived to rm [phone] at this time. See shift assessment for further detail. Oriented pt to rm, using call oleary, plan of care, etc. Call oleary within reach.
[2025-07-07 07:47] VITALS: BP 120/78
[2025-07-07 07:47] LABS: ALT (SGPT) 70 U/L (0-50); AST (SGOT) 98 U/L (17-59); Albumin 4.1 g/dl (3.5-5.0); Alkaline Phosphatase 93 U/L (38-126); Blood Urea Nitrogen 11 mg/dl (9-20); Calcium 8.7 mg/dl (8.4-10.2); Carbon Dioxide 29 mmol/L (22-30); Chloride 100 mmol/L (98-107); Estimated Creatinine Clearance 122 ml/min; Glucose 94 mg/dl (70-99); Magnesium 2.1 mg/dl (1.6-2.3); Potassium 3.6 mmol/L (3.5-5.1); Sodium 134 mmol/L (135-145); Total Protein 7.3 g/dl (6.3-8.2); eGFR > 60.00
[2025-07-07] MEDS: CYANOCOBALAMIN 1000 MCG IM (08:30)
[2025-07-07] MEDS: THIAMINE INJECTION 200 MG IV (08:30)
[2025-07-07] MEDS: PROTONIX 40 MG PO (08:30)
[2025-07-07] MEDS: LUMINAL 64.8 MG PO (08:31)
[2025-07-07] MEDS: FOLVITE 1 MG PO (08:31)
--- NOTE | 2025-07-07 10:49 | W.PN.HOSP.TC ---
Today's Communication/Plan
-
dc after last dose of phenobarb
Assessment / Plan
Assessment / Plan
54yo M, primarily [place] peaking came with 2 episodes of hematemesis. On admission confirmed to drink 1.5L of Tequila dily. Also found in alcohol withdrawal. US RUQ showed hepatic steatosis but no overt signs of portal hypertension or cirrhosis,
s/p EGD on 07/06/25 - Non bleeding erosion in gastric cardia. Hgb stable. No symptoms of withdrawal on the day of d/c. Medically stable to be d/c home. Advised not to drive - his son will pick him up.
A/P:
#Acute blood loss anemia 2/2 hematemesis due to PUD
possibly exacerbated by NSAIDs and alcohol use
follow serail H&H, transfuse as needed
Octreotide stopped with no signs of portal HTN
cont PPI drip
No abd ascites on US
GI consult: s/p EGD on 07/06/25 - Non bleeding erosion in gastric cardia, Otherwise normal - cont BID PPI
#Alcohol use disorder with alcohol withdrawal
Thiamine/FOlate
MSAS protocol
Phenobarb taper
watch for DT
B12 IM x3 doses as alcoholics usually depleted in this vitamin
#Elevated bilirubin
#Transaminitis
no signs of cholecystitis, cholelithiasis or choledocholithiasis on US
most likely 2/2 alcohol abuse
follow LFT
#Asymptomatic bacteriuria
no urinary symptoms, no indication for Abx
DVT ppx SCD
Full code
I have spent at least 36min reviewing chart, test results, communication with consultants and providing direct patient care
Anticipated Discharge: Today
Subjective/Interval History
-
Date of Service: July 07, 2025
Objective Data
-
Labs:
Laboratory Results
07/07/25
06:54
Sodium 134 L
Potassium 3.6
Chloride 100
Carbon Dioxide 29
BUN 11
Creatinine 0.7
Glucose 94
Calcium 8.7
Total Bilirubin 1.4 H
AST 98 H
ALT 70 H
Alkaline Phosphatase 93
Vital Signs:
Vital Signs
Temp Pulse Resp BP Pulse Ox
98.3 F 69 18 120/78 97
07/07/25 07:47 07/07/25 07:47 07/07/25 07:47 07/07/25 07:47 07/07/25 10:12
I&O
07/06/25 07/07/25 07/08/25
06:59 06:59 06:59
Intake Total 1412 / 1412 1380 / 1380
Output Total 1250 / 1250 400 / 400
Balance 162 / 162 980 / 980
Review of Systems
-
History Source: Patient
All other systems: Reviewed and negative
Physical Exam
-
General: No Apparent Distress
Neuro: Awake, Alert, Oriented and AO x 3; Negative Tremors
Psych: Calm; Negative Confused or Agitated
--- NOTE | 2025-07-07 10:56 | W.DCSUMMARY ---
Discharge Summary
Discharge Data
Date of Admission: 07/04/25
Date of Discharge: 07/07/25
-
Pending Results: No
Hospital Course
54yo M, primarily [place] peaking came with 2 episodes of hematemesis. On admission confirmed to drink 1.5L of Tequila dily. Also found in alcohol withdrawal. US RUQ showed hepatic steatosis but no overt signs of portal hypertension or cirrhosis,
s/p EGD on 07/06/25 - Non bleeding erosion in gastric cardia. Hgb stable. No symptoms of withdrawal on the day of d/c. Medically stable to be d/c home. Advised not to drive - his son will pick him up. Advised to stop alcohol consumption
I have spent at least 36min reviewing chart, test results, communication with consultants and providing direct patient care
Patient was managed for:
#Acute blood loss anemia 2/2 hematemesis due to PUD
#Alcohol use disorder with alcohol withdrawal
#Elevated bilirubin
#Transaminitis
#Asymptomatic bacteriuria
Discharge Plan
-
Patient Disposition: Home (Routine Discharge)
Discharge Diagnosis/Procedures: hematemesis
Diet: Regular
Activity: No restrictions
Driving Restrictions: As prior to admission
Referrals:
NONE,* [Family Provider, Internal Medicine]
Prescriptions:
New
pantoprazole 40 mg Tablet,Delayed Release (Dr/Ec)
40 mg PO DAILY Qty: 30 0RF
folic acid 1 mg Tablet
1 mg PO DAILY Qty: 30 0RF
thiamine mononitrate (vit B1) 100 mg Tablet
100 mg PO DAILY Qty: 30 0RF
Discontinued
ibuprofen [Advil] 200 mg Tablet
200 mg PO Q6HPRN PRN (Reason: MILD PAIN)
Discharge Orders:
Discharge Patient (As Directed); Ordered 07/07/25
Ordered By: Naldo Mcclain
Discharge Date and Time
Print Language: ETHIOPIAN
--- NOTE | 2025-07-07 11:45 | CM ---
Pt is discharged. He will go home with his son, no needs. Pt needs to wait until final dose of phenobarbital is given at 3PM. Pt is aware.
[2025-07-07] MEDS: LUMINAL 32.4 MG PO (15:02)
== END 2025-07-07 15:27 | disposition home or self-care (01) | DRG 378 ==
LOC: 4 EAST ACU 21:27
PROVIDERS: Physician Assistant; Physician Assistant Medical; Specialist; ADMITTING PHYSICIAN Internal Medicine; ATTENDING PHYSICIAN Internal Medicine; CONSULT PHYSICIAN Internal Medicine; EMERGENCY PHYSICIAN Emergency Medicine
PROC: 0DJ08ZZ Inspection of Upper Intestinal Tract, Via Natural or Artificial Opening Endoscopic (ICD-10-PCS; 2025-07-06)
DX: K27.4 Chronic or unspecified peptic ulcer, site unspecified, with hemorrhage (principal); D62 Acute posthemorrhagic anemia; F10.139 Alcohol abuse with withdrawal, unspecified; K76.0 Fatty (change of) liver, not elsewhere classified; R82.71 Bacteriuria; F17.210 Nicotine dependence, cigarettes, uncomplicated; Z79.899 Other long term (current) drug therapy
CPT/HCPCS: 76700; 80053; 80306; 80307; 81003; 81015; 82248; 82977; 83690; 83735; 84100; 85014; 85018; 85025; 85027; 85610; 86850; 86900; 86901; 87086; 93005; 96374; 96375; 99285; 99406; J2354